=== PATIENT | male | born 1985 | race Caucasian/White ===

== ENCOUNTER 2018-01-04 19:17 | Emergency (ER) | payer MEDICAID ==
[~2018-01-04 19:17] MED LIST: LORTAB 5/500 501 TAB PO; PERCOCET 325 MG1 TA2 PO; PHENERGAN 25 TA25 MG PO; PHENERGAN25 MG RC; PRIL40 PO; RYBIX ODT50 MG PO; VITAMIN D50000 I2 PO
[2018-01-04 19:23] VITALS: TEMP 97.9
[2018-01-04 19:35] LABS: ARTERIAL BLD GAS O2 SATURATION 96.6 % (92-100); ARTERIAL BLD GAS TCO2 CT 29.1; ARTERIAL BLOOD GAS BASE EXCESS 2.3 (-2-2); ARTERIAL BLOOD GAS HCO3 27.8 meq/L (22-26); ARTERIAL BLOOD GAS PCO2 45.1 mmHg (35-45); ARTERIAL BLOOD GAS PO2 88.1 mmHg (80-100); ARTERIAL BLOOD GAS pH 7.41 (7.35-7.45)
[2018-01-04] MEDS ORDERED: CLARITIN 1010 MG/TAB PO (19:43)
[2018-01-04] MEDS ORDERED: TYLENOL 325MG325 MG PO (19:44)
[2018-01-04] MEDS ORDERED: AMBIEN 5MG TABLE5 MG PO (19:45)
[2018-01-04] MEDS ORDERED: NORCO 325 MG-51 TAB PO (19:45)
[2018-01-04] MEDS ORDERED: VITAMIN C500 MG PO (19:45)
[2018-01-04] MEDS ORDERED: MASON NATURAL2000 IU (19:46)
[2018-01-04] MEDS ORDERED: NUVIGIL150 MG PO (19:46)
[2018-01-04 19:56] LABS: BASO # 0.1 (0.0-0.2); BASO % 0.7 % (0.0-2.0); EOS # 0.1 (0.0-0.7); EOS % 1.6 % (0-4.0); GRAN # 4.6 (1.4-6.5); GRAN % 60.3 % (42.2-75.2); HEMOGLOBIN 18.9 g/dl (13.5-18.0); LYMPH # 2.3 (1.2-3.4); LYMPH % 29.5 % (20.0-51.0); MEAN CELL VOLUME 90 fl (80.0-100.0); MEAN CORPUSCULAR HEMOGLOBIN 30 pg (27.0-31.0); MEAN CORPUSCULAR HGB CONC 34 g/dl (33.0-37.0); MEAN PLATELET VOLUME 9.8 fl (7.4-10.4); MONO # 0.6 (0.1-0.6); MONO % 7.6 % (1.7-9.3); PLATELET COUNT 281 K/mm3 (130-400); RED BLOOD COUNT 6.24 M/mm3 (4.20-5.60); REDCELL DISTRIBUTION WIDTH-CV 13.2 % (11.5-14.5)
[2018-01-04 20:06] LABS: ALANINE AMINOTRANSFERASE 86 U/L (21-72); ALBUMIN 4.7 gm/dL (3.5-5.0); ALKALINE PHOSPHATASE 110 U/L (50-136); ANION GAP 11 mmol/L (7-16); AST,SGOT 39 U/L (15-37); BILIRUBIN,TOTAL 0.5 mg/dL (0.0-1.0); BLOOD UREA NITROGEN 18 mg/dL (9-20); C-REACTIVE PROTEIN < 0.5 mg/dL (0.0-0.9); CALCIUM 9.8 mg/dL (8.4-10.2); CARBON DIOXIDE 31 mmol/L (22-30); CHLORIDE 104 mmol/L (98-107); CREATININE, serum 0.74 mg/dL (0.66-1.25); GLUCOSE 110 mg/dL (74-106); LIPASE 77 U/L (23-300); POTASSIUM 4.4 mmol/L (3.4-5.0); SODIUM 146 mmol/L (137-145); TOTAL PROTEIN 7.5 gm/dL (6.4-8.2)
[2018-01-04 20:15] LABS: TROPONIN-I < 0.012 ng/mL (0.000-0.034)
[2018-01-04 20:33] LABS: COLLECTION METHOD CATHETER
[2018-01-04 20:43] LABS: MUCOUS Present /lpf; PH 5 (5-8); SQUAMOUS EPITHELIAL None Seen /hpf; URINE APPEARANCE Clear; URINE BACTERIA None Seen /hpf; URINE BILIRUBIN Negative (NEGATIVE); URINE BLOOD Negative (NEGATIVE); URINE COLOR Yellow; URINE GLUCOSE Negative (NEGATIVE); URINE KETONE Negative (NEGATIVE); URINE LEUKOCYTE ESTERASE Negative (NEGATIVE); URINE NITRATE Negative (NEGATIVE); URINE PROTEIN(semi-quant) Negative (NEGATIVE); URINE RBC 0-2 /hpf; URINE UROBILINOGEN Negative (NEGATIVE)
[2018-01-04 22:28] VITALS: BP 137/90; PULSE 89
== END 2018-01-04 22:42 | disposition home or self-care (01) ==
LOC: COL.ER 19:17
PROVIDERS: Emergency Medicine
DX: F44.9 Dissociative and conversion disorder, unspecified (principal); K21.9 Gastro-esophageal reflux disease without esophagitis

== ENCOUNTER 2018-05-14 14:23 | Inpatient (IN) | payer MEDICAID ==
[~2018-05-14] VITALS: Ht 167.6 cm; Wt 71.6 kg
[~2018-05-14 14:23] MED LIST changes: +AMBIEN 5MG TABLE5 MG PO; +CLARITIN 1010 MG/TAB PO; +NORCO 325 MG-51 TAB PO; +NUVIGIL150 MG PO; +TYLENOL 325MG325 MG PO; +VITAMIN C500 MG PO; +VITAMIN D 50,1.25 MG PO
[2018-05-14] MEDS ORDERED: NAPROSYN500 MG PO (14:43)
[2018-05-14] MEDS ORDERED: ZOFRAN 4MG T4 MG/TAB PO (14:44)
[2018-05-14] MEDS ORDERED: GERI-TUSSI100 MG/5 M PO (14:45)
[2018-05-14 15:31] LABS: COLLECTION METHOD CLEAN CATCH
[2018-05-14 15:35] LABS: BASO % 0.3 % (0.0-2.0); EOS # 0.1 (0.0-0.7); EOS % 2.3 % (0-4.0); GRAN # 3.8 (1.4-6.5); GRAN % 65.7 % (42.2-75.2); LYMPH # 1.2 (1.2-3.4); LYMPH % 20.8 % (20.0-51.0); MEAN CELL VOLUME 89 fl (80.0-100.0); MEAN CORPUSCULAR HGB CONC 34 g/dl (33.0-37.0); MEAN PLATELET VOLUME 9.6 fl (7.4-10.4); MONO # 0.6 (0.1-0.6); MONO % 10.6 % (1.7-9.3); PLATELET COUNT 284 K/mm3 (130-400); RED BLOOD COUNT 6.02 M/mm3 (4.20-5.60)
[2018-05-14 15:38] LABS: HEMATOCRIT 53.6 % (42.0-52.0); HEMOGLOBIN 18.2 g/dl (13.5-18.0); MEAN CORPUSCULAR HEMOGLOBIN 30 pg (27.0-31.0)
[2018-05-14 15:38] LABS: MUCOUS Present /lpf; PH 5 (5-8); SQUAMOUS EPITHELIAL 0-2 /hpf; URINE APPEARANCE Clear; URINE BACTERIA Rare /hpf; URINE BILIRUBIN Negative (NEGATIVE); URINE BLOOD Negative (NEGATIVE); URINE COLOR Yellow; URINE GLUCOSE Negative (NEGATIVE); URINE KETONE Trace (NEGATIVE); URINE LEUKOCYTE ESTERASE Negative (NEGATIVE); URINE NITRATE Negative (NEGATIVE); URINE PROTEIN(semi-quant) 1+ (NEGATIVE); URINE RBC 0-2 /hpf
[2018-05-14 15:43] LABS: ALBUMIN 4.6 gm/dL (3.5-5.0); C-REACTIVE PROTEIN 5.8 mg/dL (0.0-0.9); CALCIUM 9.9 mg/dL (8.4-10.2); CREATININE, serum 0.62 mg/dL (0.66-1.25); POTASSIUM 4.3 mmol/L (3.4-5.0)
[2018-05-14 18:14] VITALS: BP 159/104; PULSE 102; TEMP 97.5
[2018-05-14 19:17] VITALS: BP 141/98; PULSE 88; TEMP 97.9
[2018-05-14 23:00] VITALS: BP 111/64; PULSE 85; TEMP 98.3
[2018-05-15] VITALS (7 sets, daily range): BP systolic 84–116; BP diastolic 49–69; PULSE 65–88; TEMP 97.6–98.6
[2018-05-15 08:00] LABS: BASO % 0.4 % (0.0-2.0); EOS # 0.2 (0.0-0.7); EOS % 3.5 % (0-4.0); GRAN # 2.3 (1.4-6.5); GRAN % 50.3 % (42.2-75.2); HEMATOCRIT 42.5 % (42.0-52.0); LYMPH # 1.4 (1.2-3.4); LYMPH % 30.2 % (20.0-51.0); MEAN CORPUSCULAR HGB CONC 32 g/dl (33.0-37.0); MEAN PLATELET VOLUME 9.4 fl (7.4-10.4); MONO # 0.7 (0.1-0.6); MONO % 15.4 % (1.7-9.3); PLATELET COUNT 215 K/mm3 (130-400); RED BLOOD COUNT 4.53 M/mm3 (4.20-5.60); REDCELL DISTRIBUTION WIDTH-CV 13.1 % (11.5-14.5)
[2018-05-15 08:02] LABS: HEMOGLOBIN 13.5 g/dl (13.5-18.0); MEAN CELL VOLUME 94 fl (80.0-100.0); MEAN CORPUSCULAR HEMOGLOBIN 30 pg (27.0-31.0)
[2018-05-15 08:09] LABS: CALCIUM 8.3 mg/dL (8.4-10.2); CREATININE, serum 0.64 mg/dL (0.66-1.25); POTASSIUM 4.3 mmol/L (3.4-5.0)
[2018-05-16] VITALS (7 sets, daily range): BP systolic 96–143; BP diastolic 58–95; PULSE 64–102; TEMP 97.6–98.6
[2018-05-17 04:30] VITALS: BP 104/66; PULSE 56; TEMP 98.3
[2018-05-17 07:05] VITALS: BP 103/67; PULSE 75; TEMP 97.6
[2018-05-17 08:43] LABS: HEMATOCRIT 43.7 % (42.0-52.0); HEMOGLOBIN 14.4 g/dl (13.5-18.0); MEAN CELL VOLUME 90 fl (80.0-100.0); MEAN CORPUSCULAR HEMOGLOBIN 30 pg (27.0-31.0); MEAN CORPUSCULAR HGB CONC 33 g/dl (33.0-37.0); MEAN PLATELET VOLUME 9.7 fl (7.4-10.4); PLATELET COUNT 252 K/mm3 (130-400); RED BLOOD COUNT 4.84 M/mm3 (4.20-5.60); REDCELL DISTRIBUTION WIDTH-CV 12.8 % (11.5-14.5)
[2018-05-17 08:54] LABS: CALCIUM 9.3 mg/dL (8.4-10.2); CREATININE, serum 0.63 mg/dL (0.66-1.25)
[2018-05-17 11:08] VITALS: BP 118/78; PULSE 64; TEMP 98.2
[2018-05-17 15:46] VITALS: BP 114/76; PULSE 71; TEMP 98.9
[2018-05-17 19:41] VITALS: BP 137/94; PULSE 67; TEMP 98
[2018-05-18] VITALS (601 sets, daily range): BP systolic 102–127; BP diastolic 64–79; PULSE 50–70; TEMP 97.7–98.6; O2SAT 68–100
[2018-05-18 12:11] LABS: ARTERIAL BLOOD GAS PCO2 41.9 mmHg (35-45); ARTERIAL BLOOD GAS pH 7.46 (7.35-7.45)
[2018-05-18 12:12] LABS: ARTERIAL BLD GAS O2 SATURATION 98.8 % (92-100); ARTERIAL BLD GAS TCO2 CT 442; ARTERIAL BLOOD GAS HCO3 29.3 meq/L (22-26)
[2018-05-18 12:23] LABS: MEAN CELL VOLUME 91 fl (80.0-100.0); MEAN CORPUSCULAR HGB CONC 33 g/dl (33.0-37.0); MEAN PLATELET VOLUME 9.2 fl (7.4-10.4); PLATELET COUNT 195 K/mm3 (130-400); RED BLOOD COUNT 3.58 M/mm3 (4.20-5.60); REDCELL DISTRIBUTION WIDTH-CV 12.5 % (11.5-14.5)
[2018-05-18 12:27] LABS: HEMATOCRIT 32.4 % (42.0-52.0); HEMOGLOBIN 10.7 g/dl (13.5-18.0); MEAN CORPUSCULAR HEMOGLOBIN 30 pg (27.0-31.0)
[2018-05-18 12:32] LABS: INR 1.3 (0.8-3.0); PROTHROMBIN TIME 15.1 SECONDS (9.7-12.8)
[2018-05-18 12:36] LABS: BILIRUBIN,TOTAL 0.1 mg/dL (0.0-1.0); CREATININE, serum 0.36 mg/dL (0.66-1.25); MAGNESIUM 1.2 mg/dL (1.6-2.3); TOTAL PROTEIN 3.9 gm/dL (6.4-8.2)
[2018-05-18 12:39] LABS: CALCIUM 5.2 mg/dL (8.4-10.2); POTASSIUM 2.2 mmol/L (3.4-5.0)
[2018-05-18 12:50] LABS: PROLACTIN 11.9 ng/mL (3.7-17.9)
[2018-05-18 13:12] LABS: ALBUMIN 4.1 gm/dL (3.5-5.0); BILIRUBIN,TOTAL 0.5 mg/dL (0.0-1.0); CALCIUM 9.5 mg/dL (8.4-10.2); CREATININE, serum 0.63 mg/dL (0.66-1.25); POTASSIUM 3.6 mmol/L (3.4-5.0); TOTAL PROTEIN 6.9 gm/dL (6.4-8.2)
[2018-05-18 14:14] LABS: BASO % 0.5 % (0.0-2.0); EOS # 0.1 (0.0-0.7); EOS % 1.7 % (0-4.0); GRAN # 3.3 (1.4-6.5); GRAN % 56.8 % (42.2-75.2); HEMATOCRIT 46.6 % (42.0-52.0); LYMPH # 1.8 (1.2-3.4); LYMPH % 31.7 % (20.0-51.0); MEAN CELL VOLUME 89 fl (80.0-100.0); MEAN CORPUSCULAR HEMOGLOBIN 30 pg (27.0-31.0); MEAN CORPUSCULAR HGB CONC 34 g/dl (33.0-37.0); MEAN PLATELET VOLUME 9.6 fl (7.4-10.4); MONO # 0.5 (0.1-0.6); MONO % 8.1 % (1.7-9.3); PLATELET COUNT 290 K/mm3 (130-400); RED BLOOD COUNT 5.23 M/mm3 (4.20-5.60); REDCELL DISTRIBUTION WIDTH-CV 12.6 % (11.5-14.5)
[2018-05-18 14:17] LABS: HEMOGLOBIN 15.7 g/dl (13.5-18.0)
[2018-05-19] VITALS (582 sets, daily range): BP systolic 80–132; BP diastolic 53–82; PULSE 59–89; TEMP 97.6–98.5; O2SAT 63–100
[2018-05-19 06:09] LABS: BASO % 0.4 % (0.0-2.0); EOS # 0.1 (0.0-0.7); EOS % 1.5 % (0-4.0); GRAN # 4.1 (1.4-6.5); GRAN % 60.5 % (42.2-75.2); HEMATOCRIT 43.8 % (42.0-52.0); HEMOGLOBIN 14.3 g/dl (13.5-18.0); LYMPH # 1.9 (1.2-3.4); LYMPH % 28.1 % (20.0-51.0); MEAN CELL VOLUME 91 fl (80.0-100.0); MEAN CORPUSCULAR HEMOGLOBIN 30 pg (27.0-31.0); MEAN CORPUSCULAR HGB CONC 33 g/dl (33.0-37.0); MEAN PLATELET VOLUME 9.2 fl (7.4-10.4); MONO # 0.6 (0.1-0.6); MONO % 8.8 % (1.7-9.3); PLATELET COUNT 278 K/mm3 (130-400); REDCELL DISTRIBUTION WIDTH-CV 12.9 % (11.5-14.5)
[2018-05-19 06:19] LABS: CALCIUM 8.7 mg/dL (8.4-10.2); CREATININE, serum 0.67 mg/dL (0.66-1.25); POTASSIUM 3.9 mmol/L (3.4-5.0)
[2018-05-20] VITALS (7 sets, daily range): BP systolic 102–124; BP diastolic 44–93; PULSE 60–81; TEMP 98–98.6
[2018-05-20 05:28] LABS: ARTERIAL BLD GAS O2 SATURATION 92.2 % (92-100); ARTERIAL BLD GAS TCO2 CT 30.4; ARTERIAL BLOOD GAS BASE EXCESS 3.5 (-2-2); ARTERIAL BLOOD GAS PCO2 46.6 mmHg (35-45); ARTERIAL BLOOD GAS PO2 58.8 mmHg (80-100); ARTERIAL BLOOD GAS pH 7.41 (7.35-7.45)
[2018-05-21 00:48] VITALS: BP 102/58; PULSE 64; TEMP 98.2
[2018-05-21 03:59] VITALS: BP 104/73; PULSE 57; TEMP 97.8
[2018-05-21 07:35] VITALS: BP 104/51; BP 109/76; PULSE 74; PULSE 75; TEMP 97.5; TEMP 98.4
[2018-05-21] MEDS ORDERED: REGLAN 5MG T5 MG/TAB PO (08:19)
[2018-05-21] MEDS ORDERED: PREVALITE4 GM/5.5 G PO (08:19)
[2018-05-21] MEDS ORDERED: PROTONIX 40MG T40 MG PO (08:19)
[2018-05-21 11:45] VITALS: BP 109/76; PULSE 74; TEMP 97.5
== END 2018-05-21 13:07 | DRG 391 ==
LOC: COL.ER 14:23 → MEDICAL 16:58 → ICU 05-18 11:58 → MEDICAL 05-19 11:20
PROVIDERS: Family Medicine; Hospitalist; Internal Medicine Gastroenterology; Internal Medicine Pulmonary Disease; Surgery
PROC: 0DB68ZX Excision of Stomach, Via Natural or Artificial Opening Endoscopic, Diagnostic (ICD-10-PCS; 2018-05-18)
PROC: 0DBN8ZX Excision of Sigmoid Colon, Via Natural or Artificial Opening Endoscopic, Diagnostic (ICD-10-PCS; principal; 2018-05-18 10:00)
PROC: 0DB98ZX Excision of Duodenum, Via Natural or Artificial Opening Endoscopic, Diagnostic (ICD-10-PCS; 2018-05-18 10:00)
DX: R11.2 Nausea with vomiting, unspecified (principal); R09.2 Respiratory arrest; G71.0 Muscular dystrophy; R19.7 Diarrhea, unspecified
CPT/HCPCS: 99223; 99232-AI; A9284; G0378; J1170; J1650; J2270; J2405; J2704; J2765; J3475; J3480; J7030; J7120; Q9967

== ENCOUNTER 2018-06-26 16:48 | Emergency (ER) | payer MEDICAID ==
[~2018-06-26] VITALS: Ht 167.6 cm; Wt 73.2 kg
[~2018-06-26 16:48] MED LIST changes: +GERI-TUSSI100 MG/5 M PO; +NAPROSYN500 MG PO; +PREVALITE4 GM/5.5 G PO; +PROTONIX 40MG T40 MG PO; +REGLAN 5MG T5 MG/TAB PO; +ZOFRAN 4MG T4 MG/TAB PO
[2018-06-26 16:53] VITALS: TEMP 99.2
[2018-06-26 17:42] LABS: COLLECTION METHOD CLEAN CATCH
[2018-06-26 17:42] LABS: BASO % 0.4 % (0.0-2.0); EOS # 0.1 (0.0-0.7); EOS % 1.4 % (0-4.0); GRAN # 3.9 (1.4-6.5); GRAN % 48.7 % (42.2-75.2); HEMATOCRIT 49.5 % (42.0-52.0); HEMOGLOBIN 16.4 g/dl (13.5-18.0); LYMPH # 3.3 (1.2-3.4); LYMPH % 41.8 % (20.0-51.0); MEAN CELL VOLUME 92 fl (80.0-100.0); MEAN CORPUSCULAR HEMOGLOBIN 31 pg (27.0-31.0); MEAN CORPUSCULAR HGB CONC 33 g/dl (33.0-37.0); MEAN PLATELET VOLUME 10.2 fl (7.4-10.4); MONO # 0.6 (0.1-0.6); MONO % 7.2 % (1.7-9.3); PLATELET COUNT 289 K/mm3 (130-400); RED BLOOD COUNT 5.37 M/mm3 (4.20-5.60); REDCELL DISTRIBUTION WIDTH-CV 13.3 % (11.5-14.5)
[2018-06-26 17:49] LABS: MUCOUS Present /lpf; PH 5 (5-8); SQUAMOUS EPITHELIAL None Seen /hpf; URINE APPEARANCE Clear; URINE BACTERIA None Seen /hpf; URINE BILIRUBIN Negative (NEGATIVE); URINE BLOOD Negative (NEGATIVE); URINE COLOR Yellow; URINE GLUCOSE Negative (NEGATIVE); URINE KETONE Negative (NEGATIVE); URINE LEUKOCYTE ESTERASE Negative (NEGATIVE); URINE NITRATE Negative (NEGATIVE); URINE PROTEIN(semi-quant) Negative (NEGATIVE); URINE RBC 0-2 /hpf; URINE UROBILINOGEN Negative (NEGATIVE)
[2018-06-26 18:24] LABS: ALANINE AMINOTRANSFERASE 89 U/L (21-72); ALBUMIN 4.1 gm/dL (3.5-5.0); ALKALINE PHOSPHATASE 65 U/L (50-136); ANION GAP 13 mmol/L (7-16); AST,SGOT 47 U/L (15-37); BILIRUBIN,TOTAL 0.3 mg/dL (0.0-1.0); BLOOD UREA NITROGEN 17 mg/dL (9-20); C-REACTIVE PROTEIN 0.6 mg/dL (0.0-0.9); CALCIUM 9.1 mg/dL (8.4-10.2); CARBON DIOXIDE 28 mmol/L (22-30); CHLORIDE 103 mmol/L (98-107); CREATININE, serum 0.67 mg/dL (0.66-1.25); GLUCOSE 89 mg/dL (74-106); LIPASE 72 U/L (23-300); POTASSIUM 3.8 mmol/L (3.4-5.0); SODIUM 144 mmol/L (137-145)
[2018-06-26 18:34] LABS: TROPONIN-I < 0.012 ng/mL (0.000-0.034)
[2018-06-26 21:08] VITALS: BP 117/87; PULSE 92
== END 2018-06-26 21:30 | disposition home or self-care (01) ==
LOC: COL.ER 16:48 → ICU 18:34 → COL.ER 18:34
PROVIDERS: Emergency Medicine
DX: R07.89 Other chest pain (principal)
CPT/HCPCS: C9113; J2405; J2765; J3010; J7030; Q9967

== ENCOUNTER → 2018-09-05 | Outpatient (CLI) | payer MEDICAID ==
[2018-09-05 13:52] LABS: HEMATOCRIT 51.8 % (42.0-52.0); HEMOGLOBIN 16.8 g/dl (13.5-18.0); MEAN CELL VOLUME 94 fl (80.0-100.0); MEAN CORPUSCULAR HEMOGLOBIN 31 pg (27.0-31.0); MEAN CORPUSCULAR HGB CONC 32 g/dl (33.0-37.0); MEAN PLATELET VOLUME 10.3 fl (7.4-10.4); PLATELET COUNT 276 K/mm3 (130-400); RED BLOOD COUNT 5.51 M/mm3 (4.20-5.60)
[2018-09-05 14:04] LABS: BAND 3 % (0-10); LYMPHOCYTE 35 % (20.0-51.0); NEUTROPHILS 55 % (42.0-75.2); PLATELET ESTIMATE NORMAL (NORMAL); STOMATOCYTE 2+
[2018-09-05 14:16] LABS: CHOLESTEROL 269 mg/dL (120-200); CHOLESTEROL RISK RATIO 8.1
[2018-09-05 14:23] LABS: TRIGLYCERIDE 594 mg/dL
== END ==
LOC: ZCOL.LAB 12:47
PROVIDERS: Family Medicine
DX: G71.11 Myotonic muscular dystrophy (principal)

== ENCOUNTER 2018-10-10 10:02 | Emergency (ER) | payer MEDICAID ==
[~2018-10-10] VITALS: Ht 167.6 cm; Wt 76.4 kg
[2018-10-10 10:06] VITALS: BP 144/92; TEMP 98.1
[2018-10-10] MEDS ORDERED: VITAMIN D 50,1.25 MG PO (10:18)
[2018-10-10] MEDS ORDERED: REGLAN 5MG T5 MG/TAB PO (10:19)
[2018-10-10] MEDS ORDERED: MIRALAX PA17 GM/Dose PO (10:23)
[2018-10-10 10:57] LABS: BASO % 0.3 % (0.0-2.0); EOS % 0.3 % (0-4.0); GRAN # 7.4 (1.4-6.5); GRAN % 77.5 % (42.2-75.2); HEMATOCRIT 53.5 % (42.0-52.0); HEMOGLOBIN 17.4 g/dl (13.5-18.0); LYMPH # 1.4 (1.2-3.4); LYMPH % 14.8 % (20.0-51.0); MEAN CELL VOLUME 92 fl (80.0-100.0); MEAN CORPUSCULAR HEMOGLOBIN 30 pg (27.0-31.0); MEAN CORPUSCULAR HGB CONC 33 g/dl (33.0-37.0); MEAN PLATELET VOLUME 9.6 fl (7.4-10.4); MONO # 0.7 (0.1-0.6); MONO % 6.9 % (1.7-9.3); PLATELET COUNT 273 K/mm3 (130-400); RED BLOOD COUNT 5.81 M/mm3 (4.20-5.60); REDCELL DISTRIBUTION WIDTH-CV 13.2 % (11.5-14.5)
[2018-10-10 11:16] LABS: ALANINE AMINOTRANSFERASE 107 U/L (21-72); ALBUMIN 4.7 gm/dL (3.5-5.0); ALKALINE PHOSPHATASE 85 U/L (50-136); ANION GAP 8 mmol/L (7-16); AST,SGOT 65 U/L (15-37); BILIRUBIN,TOTAL 0.8 mg/dL (0.0-1.0); BLOOD UREA NITROGEN 16 mg/dL (9-20); C-REACTIVE PROTEIN 1.4 mg/dL (0.0-0.9); CALCIUM 9.8 mg/dL (8.4-10.2); CARBON DIOXIDE 31 mmol/L (22-30); CHLORIDE 107 mmol/L (98-107); CREATININE, serum 0.64 mg/dL (0.66-1.25); GLUCOSE 101 mg/dL (74-106); LIPASE 41 U/L (23-300); SODIUM 146 mmol/L (137-145); TOTAL PROTEIN 7.9 gm/dL (6.4-8.2)
[2018-10-10 11:25] LABS: TROPONIN-I < 0.012 ng/mL (0.000-0.034)
[2018-10-10] MEDS ORDERED: PHENERGAN 25 TA25 MG PO (15:26)
[2018-10-10] MEDS ORDERED: ZOFRAN ODT4 MG PO (15:26)
[2018-10-10 16:10] VITALS: PULSE 72
== END 2018-10-10 16:34 | disposition home or self-care (01) ==
LOC: COL.ER 10:02
PROVIDERS: Emergency Medicine
DX: R19.7 Diarrhea, unspecified (principal); R11.10 Vomiting, unspecified; K21.9 Gastro-esophageal reflux disease without esophagitis; G71.00 Muscular dystrophy, unspecified; Z90.49 Acquired absence of other specified parts of digestive tract
CPT/HCPCS: J2405; J2550; J7030; Q9967

== ENCOUNTER → 2018-12-10 | Outpatient (CLI) | payer MEDICAID ==
[~2018-12-10] MED LIST changes: +MIRALAX PA17 GM/Dose PO; +ZOFRAN ODT4 MG PO
== END ==
LOC: ZCOL.LAB 13:50
DX: G71.11 Myotonic muscular dystrophy (principal); K21.9 Gastro-esophageal reflux disease without esophagitis

== ENCOUNTER 2019-04-18 11:10 | Inpatient (IN) | payer MEDICAID ==
[~2019-04-18] VITALS: Ht 167.6 cm; Wt 80.7 kg
[2019-04-18] VITALS (376 sets, daily range): BP systolic 100–101; BP diastolic 69–73; PULSE 100–118; TEMP 99.5–99.6; O2SAT 80–100
[~2019-04-18 11:10] MED LIST changes: +GLYCERIN S1 SUPP.REC RC; +IMODIUM 2MG CAPS2 MG PO; +LIPITOR20 MG PO; +POLYMYXIN B/TRIMETH OP; +POLYMYXIN B/TRIMETH OS; +PREDFORTE5ML OP
[2019-04-18 11:49] LABS: ARTERIAL BLD GAS O2 SATURATION 94.3 % (92-100); ARTERIAL BLD GAS TCO2 CT 34.6; ARTERIAL BLOOD GAS BASE EXCESS 3.5 (-2-2); ARTERIAL BLOOD GAS HCO3 32.5 meq/L (22-26); ARTERIAL BLOOD GAS PO2 77.3 mmHg (80-100); ARTERIAL BLOOD GAS pH 7.31 (7.35-7.45)
[2019-04-18 11:50] LABS: ARTERIAL BLOOD GAS PCO2 65.8 mmHg (35-45)
[2019-04-18 12:41] LABS: ALBUMIN 4.9 gm/dL (3.5-5.0); CREATININE, serum 0.68 (0.66-1.25); POTASSIUM 3.5 mmol/L (3.4-5.0); TOTAL PROTEIN 9.2 gm/dL (6.4-8.2)
[2019-04-18 13:48] LABS: HEMOGLOBIN 17.7 g/dl (13.5-18.0); MEAN CELL VOLUME 96 fl (80.0-100.0); MEAN CORPUSCULAR HEMOGLOBIN 30 pg (27.0-31.0); MEAN CORPUSCULAR HGB CONC 31 g/dl (33.0-37.0); MEAN PLATELET VOLUME 9.6 fl (7.4-10.4); PLATELET COUNT 290 K/mm3 (130-400); REDCELL DISTRIBUTION WIDTH-CV 13.6 % (11.5-14.5)
[2019-04-18 13:53] LABS: HEMATOCRIT 56.8 % (42.0-52.0)
--- NOTE | 2019-04-18 14:05 | NUR ---
DANELLE responded to ED consult and met with the patient's cousin, Tahmina (DPOA-HC). Tahmina reports that the patient is not doing very well and she had questions about finances for arrangements, if the patient's condition were to get worse. She states that the patient receives social security and that he has a payee. SW advised the patient's cousin to consult his payee. The patient's cousin had no other questions or concerns at this time. The patient was admitted into ICU. DANELLE to continue to follow.
[2019-04-18 14:40] LABS: BAND 13 % (0-10); LYMPHOCYTE 37 % (20.0-51.0); NEUTROPHILS 38 % (42.0-75.2); PLATELET ESTIMATE NORMAL (NORMAL)
--- NOTE | 2019-04-18 15:45 | NUR ---
Pt arrived via cart, transfered via slideboard onto ICU bed - pt tolerated transfer well. Pt tachypnic, tachycardic and normotensive at this time, non-rebreather mask in place and RT Patience present during transport. BiPap machine in room on standby. Pt AAOx4, conversation appropriate, no confusion, PERRLA, Family member Tahmina stating she wants pt to be intubated d/t respiratory distress and high doses of O2 requirements. MD Tony, WILLOW Rios, DANELLE Carrillo Patience,RT Theresa Desouza RN all present for conversation with pt's family member and pt. Pt expressing his wishes stating "I do not want the breathing tube". MD Tony stated to pt we will respect his wishes - family member, pt, and all parties present in agreement on DNI, otherwise code status is 'Full'
--- NOTE | 2019-04-18 16:11 | NUR ---
Dr Jimenez talked with pt upon arrival to ICU about his wishes regarding intubation. Pt is aware that he has pneumonia and that BIPAP can be tried to assist him with breathing but he was asked several times "if he would want a tube down his throat to help him breath with a machine" and he very clearly and deliberately shook his head "no". He was again asked if he would want to be placed on a breathing machine with a tube down his throat even if it meant that he would without the machine and again he deliberately shook his head no. His durable power of development planner was called into the room and reported to Dr Jimenez that pt had also told her that he would not want a tube down his throat or to be on a ventilator. Dr Jimenez then advised her that he would not go against pt's wishes if his condition were to worsen. We will continue antibiotics and supportyive care but will not proceed with intubation out of respect for pt's wishes.
--- NOTE | 2019-04-18 16:14 | NUR ---
DANELLE met with the patient and JEAN-PAUL Martel to discuss a discharge plan. The pt lives at [facility] in [facility]. The pt has a cane and receives partial assistance with bathing. The pt receives his medications from [facility] in [place]. Tahmina Ovalles Dr. Jimenez spoke with the pt upon arrival to ICU3 about his wishes. Dr. Jimenez asked "if he would want a tube down his throat" and the pt shook his head side to side with a no. Dr. Jimenez asked the pt "if he would like to be on a venilator" and the pt shook his head side to side no. JEAN-PAUL was informed of patient's wishes. Dr. Jimenez advised MARIE-VASHTI thathe would not go against the pt's wishes. DANELLE will continue to follow and assist with any discharge needs.
--- NOTE | 2019-04-18 16:15 | NUR ---
After discussing with the patient and the DPOA the results of the most recent CT scan, Dr. Jimenez asked the patient again if he would want to be intubated and placed on a ventilator if he does not improve on the Bipap. The pt said that he would not want that again. MARIE Martel stated that she would want to do everything in his best intrest even if that meant intubation. Dr. Jimenez stated that he would treat Cristopher according to Juandragan's wishes becuase he is alert & orientated and able to make that descision at this time.
[2019-04-18 18:44] LABS: ARTERIAL BLD GAS O2 SATURATION 90.6 % (92-100); ARTERIAL BLD GAS TCO2 CT 32.8; ARTERIAL BLOOD GAS BASE EXCESS 4.5 (-2-2); ARTERIAL BLOOD GAS HCO3 31.2 meq/L (22-26); ARTERIAL BLOOD GAS PCO2 53.7 mmHg (35-45); ARTERIAL BLOOD GAS PO2 59.1 mmHg (80-100); ARTERIAL BLOOD GAS pH 7.38 (7.35-7.45)
[2019-04-18 20:09] LABS: COLLECTION METHOD CLEAN CATCH
[2019-04-18 20:50] LABS: AMORPHOUS CRYSTAL Present /uL; MUCOUS Present /lpf; PH 5 (5-8); SQUAMOUS EPITHELIAL 0-2 /hpf; URINE APPEARANCE Cloudy; URINE BACTERIA None Seen /hpf; URINE BILIRUBIN Negative (NEGATIVE); URINE BLOOD Negative (NEGATIVE); URINE COLOR Yellow; URINE GLUCOSE Negative (NEGATIVE); URINE KETONE Negative (NEGATIVE); URINE LEUKOCYTE ESTERASE Negative (NEGATIVE); URINE NITRATE Negative (NEGATIVE); URINE PROTEIN(semi-quant) Negative (NEGATIVE); URINE UROBILINOGEN Negative (NEGATIVE)
--- NOTE | 2019-04-18 21:08 | NUR ---
DONE ORAL CARE ON PT WITH TOOTHBRUSH. USED MOUTH MOISTURIZER
[2019-04-19] VITALS (1144 sets, daily range): BP systolic 98–108; BP diastolic 46–81; PULSE 82–154; TEMP 9.8; O2SAT 81–100
[2019-04-19 05:36] LABS: MEAN CELL VOLUME 95 fl (80.0-100.0); MEAN CORPUSCULAR HEMOGLOBIN 30 pg (27.0-31.0); MEAN CORPUSCULAR HGB CONC 31 g/dl (33.0-37.0); MEAN PLATELET VOLUME 10.2 fl (7.4-10.4); PLATELET COUNT 220 K/mm3 (130-400); RED BLOOD COUNT 5.14 M/mm3 (4.20-5.60)
[2019-04-19 05:37] LABS: HEMOGLOBIN 15.4 g/dl (13.5-18.0)
[2019-04-19 05:44] LABS: ALBUMIN 3.8 gm/dL (3.5-5.0); BILIRUBIN,TOTAL 0.9 mg/dL (0.0-1.0); CALCIUM 8.8 mg/dL (8.4-10.2); CREATININE, serum 0.67 (0.66-1.25); MAGNESIUM 2.5 mg/dL (1.6-2.3); PHOSPHOROUS 2.9 mg/dL (2.5-4.5); POTASSIUM 3.7 mmol/L (3.4-5.0); TOTAL PROTEIN 7.1 gm/dL (6.4-8.2)
[2019-04-19 06:00] LABS: PLATELET ESTIMATE NORMAL (NORMAL)
[2019-04-19 06:34] LABS: BAND 61 % (0-10); LYMPHOCYTE 4 % (20.0-51.0); METAMYELOCYTE 8 % (0-0); NEUTROPHILS 21 % (42.0-75.2)
--- NOTE | 2019-04-19 08:00 | NUR ---
Shift assessment complete at this time. Plan of care reviewed at bedside with patient. Additional time taken to address any other educational needs or concerns. Vitals stable at this time. Denies pain or any other discomfort. Bed in low position, call light within reach, will continue to monitor.
[2019-04-19 10:08] LABS: PATHOLOGY DIFF REVIEW OK
--- NOTE | 2019-04-19 11:00 | NUR ---
At 1051, Pt noted to be in A-Fib RVR with high rate in 160s to 190s. Dr. German in unit at time and ordered Stat dose of [address] Mari consulted and 300 mg amiodarone bolus was administered. Pt converted to sinus rhythm on own at approximately 1245. Dr. Mari notified and orders received to continue Amiodarone gtt for 24 hours at 1 mg/min.
--- NOTE | 2019-04-19 11:16 | NUR ---
Intial amiodarone bolus adminstration started. Total infusion time is 30 minutes of 150 mg per order.
--- NOTE | 2019-04-19 12:00 | NUR ---
Second amiodarone bolus administered over 1 hour per order.
--- NOTE | 2019-04-19 12:56 | NUR ---
Amiodarone gtt started at this time. 1 mg/min dosage to run for a total of 24 hours per order.
[2019-04-19 13:13] LABS: ARTERIAL BLD GAS O2 SATURATION 93.8 % (92-100); ARTERIAL BLOOD GAS BASE EXCESS 8.2 (-2-2); ARTERIAL BLOOD GAS HCO3 35.2 meq/L (22-26); ARTERIAL BLOOD GAS PCO2 58.2 mmHg (35-45); ARTERIAL BLOOD GAS PO2 69.3 mmHg (80-100)
--- NOTE | 2019-04-19 16:00 | NUR ---
Shift reassessment complete at this time. Pt has had no rhythm changes from sinus since the end of the second amiodarone bolus. Vitals stable at this time. Denies pain or any other discomfort. Bed in low and locked position, call light within reach, will continue to monitor.
--- NOTE | 2019-04-19 19:21 | NUR ---
Bedside report given to WILLOW Perkins.
--- NOTE | 2019-04-19 19:40 | NUR ---
Patient assessment completed and charted at this time, please see documentation for details. Patient assisted back to bed from commode, stand by assist no issues to report. Patient remains on 15L via oxymask at this time. No family present, denies any needs, will continue to monitor and assess.
[2019-04-20] VITALS (930 sets, daily range): BP systolic 72–124; BP diastolic 40–84; PULSE 57–86; TEMP 98–99.4; O2SAT 83–100
[2019-04-20 05:35] LABS: HEMATOCRIT 39.2 % (42.0-52.0); MEAN CELL VOLUME 97 fl (80.0-100.0); MEAN CORPUSCULAR HEMOGLOBIN 30 pg (27.0-31.0); MEAN CORPUSCULAR HGB CONC 31 g/dl (33.0-37.0); MEAN PLATELET VOLUME 10.4 fl (7.4-10.4); PLATELET COUNT 254 K/mm3 (130-400); RED BLOOD COUNT 4.06 M/mm3 (4.20-5.60); REDCELL DISTRIBUTION WIDTH-CV 13.9 % (11.5-14.5)
[2019-04-20 05:37] LABS: HEMOGLOBIN 12.2 g/dl (13.5-18.0)
[2019-04-20 05:44] LABS: CALCIUM 7.6 mg/dL (8.4-10.2); CREATININE, serum 0.49 (0.66-1.25); MAGNESIUM 2.3 mg/dL (1.6-2.3); PHOSPHOROUS 1.5 mg/dL (2.5-4.5); POTASSIUM 3.4 mmol/L (3.4-5.0)
--- NOTE | 2019-04-20 07:00 | NUR ---
REPORT RECEIVED FROM AZEB DAUGHERTY. CARE ASSUMED.
--- NOTE | 2019-04-20 07:55 | NUR ---
PT'S MOTHER CALLED FOR AN UPDATE. PT'S MOTHER STATES SHE WILL BE ARRIVING AROUND 1500 TO SEE SON.
--- NOTE | 2019-04-20 09:28 | NUR ---
BIPAP RESUMED D/T PT'S O2 SAT DECREASING TO 88% ON 10L OM.
[2019-04-20 09:46] LABS: BAND 46 % (0-10); LYMPHOCYTE 9 % (20.0-51.0); METAMYELOCYTE 3 % (0-0); NEUTROPHILS 38 % (42.0-75.2)
[2019-04-20 09:47] LABS: HYPOCHROMIA 1+; PLATELET ESTIMATE NORMAL (NORMAL)
[2019-04-20 10:48] LABS: ARTERIAL BLD GAS O2 SATURATION 93.4 % (92-100); ARTERIAL BLD GAS TCO2 CT 35.2; ARTERIAL BLOOD GAS HCO3 33.4 meq/L (22-26); ARTERIAL BLOOD GAS PCO2 60.4 mmHg (35-45); ARTERIAL BLOOD GAS PO2 70.5 mmHg (80-100); ARTERIAL BLOOD GAS pH 7.36 (7.35-7.45)
--- NOTE | 2019-04-20 11:31 | NUR ---
PT INCREASINGLY LETHARGIC. PT ON BIPAP AT 55%. LEVOPHED PROGRESSIVELY NEEDING TO BE INCREASED FOR HYPOTENSION. DR RIOS AT BEDSIDE.
--- NOTE | 2019-04-20 12:00 | NUR ---
PT PALE IN APPEARANCE. PT NOTED TO HAVE MODERATE AMT OF SCLERAL EDEMA NOT NOTED PRIOR TO LEFT EYE.
--- NOTE | 2019-04-20 12:31 | NUR ---
CALLED PT'S DPOA, HUMA, TO GIVE HER AN UPDATE ON PATIENT'S STATUS REGARDING HIS BP, LEVOPHED, BLOOD WORK, AND CHEST XRAY. DPOA PICKING UP PATIENT'S MOTHER AT AIRPORT AND WILL BE COMING IN TO SEE PATIENT SOON SHE PICKS UP HIS MOTHER.
--- NOTE | 2019-04-20 13:22 | NUR ---
PT HAVING DIFFICULTY VOIDING BUT IS REFUSING A CATHETER. I EXPLAINED TO PATIENT THAT D/T HIS HYPOTENSION AND BEING ON LEVOPHED IT IS UNSAFE TO LET HIM GET UP TO THE BEDSIDE COMMODE. PT ATTEMPTED TWICE TO VOID IN URINAL WITHOUT SUCCESS. DID ALLOW PT TO SIT ON EDGE TO ATTEMPT TO VOID IN URINAL. PT UNABLE TO VOID. PT DID ASK IF WE COULD PUT A DEPENDS ON PATIENT TO GO IN SINCE WE WOULD NOT ALLOW HIM UP TO THE BEDSIDE COMMODE.
--- NOTE | 2019-04-20 15:24 | NUR ---
PT'S LEVOPHED REMAINS ON STANDBY. PT ABLE TO PIVOT TO BEDSIDE COMMODE AND THEN PIVOT TO RECLINER CHAIR.
[2019-04-20 16:48] LABS: CALCIUM 9.1 mg/dL (8.4-10.2); CREATININE, serum 0.46 (0.66-1.25); PHOSPHOROUS 1.8 mg/dL (2.5-4.5)
--- NOTE | 2019-04-20 16:50 | NUR ---
PT'S COUSIN AND MOM HERE AT BEDSIDE.
[2019-04-21] VITALS (82 sets, daily range): BP systolic 92–121; BP diastolic 63–85; PULSE 67–163; TEMP 97.8–98; O2SAT 86–97
[2019-04-21 05:14] LABS: HEMATOCRIT 42.3 % (42.0-52.0); HEMOGLOBIN 13.1 g/dl (13.5-18.0); MEAN CELL VOLUME 97 fl (80.0-100.0); MEAN CORPUSCULAR HEMOGLOBIN 30 pg (27.0-31.0); MEAN CORPUSCULAR HGB CONC 31 g/dl (33.0-37.0); MEAN PLATELET VOLUME 10.4 fl (7.4-10.4); PLATELET COUNT 242 K/mm3 (130-400); RED BLOOD COUNT 4.37 M/mm3 (4.20-5.60); REDCELL DISTRIBUTION WIDTH-CV 13.5 % (11.5-14.5)
[2019-04-21 05:32] LABS: CALCIUM 8.9 mg/dL (8.4-10.2); CREATININE, serum 0.53 (0.66-1.25); MAGNESIUM 2.4 mg/dL (1.6-2.3); PHOSPHOROUS 1.7 mg/dL (2.5-4.5); POTASSIUM 3.9 mmol/L (3.4-5.0)
[2019-04-21 05:40] LABS: BAND 28 % (0-10); HYPOCHROMIA 1+; LYMPHOCYTE 10 % (20.0-51.0); METAMYELOCYTE 1 % (0-0); NEUTROPHILS 58 % (42.0-75.2); PLATELET ESTIMATE NORMAL (NORMAL)
[2019-04-21 05:45] LABS: ARTERIAL BLD GAS O2 SATURATION 91.9 % (92-100); ARTERIAL BLD GAS TCO2 CT 31.7; ARTERIAL BLOOD GAS BASE EXCESS 3.7 (-2-2); ARTERIAL BLOOD GAS HCO3 30.1 meq/L (22-26); ARTERIAL BLOOD GAS PCO2 52.8 mmHg (35-45); ARTERIAL BLOOD GAS PO2 65.2 mmHg (80-100); ARTERIAL BLOOD GAS pH 7.37 (7.35-7.45)
--- NOTE | 2019-04-21 07:15 | NUR ---
0700:SpO2 82% on 15L/min Oxymask - Pt aggreeable to BiPap (50%FiO2), SpO2 increased to 87%, FiO2 increased to 70% SpO2 increased to 92%. 0715:MD Jacey on unit in room. HR 130-160s AFib/Flutter. Amiodarone bolus initiated by WILLOW Perkins complete. MD Jacey gave no new orders other than to watch for 2 hours further. 0729: MD Emeli called and notified of pt HR, recent BP, BiPap and oxygen demand. Ordered to administer PO amiodarone early right now. 0745: Pt refusing going back on BiPap after PO amiodarone dose administration, Oxymask at 15L/min applied - RT Amira called and notified.
--- NOTE | 2019-04-21 08:45 | NUR ---
reported by primary care nurse patient is having tachyarrhythmias. Reviewed this a.m. chest x-ray with tip location noted in right atrium. Contacted assistant wrestling coach and he order for PICC to be retracted 1-2 cm. With sterile technique right upper arm PICC dressing change done with insertion site cleansed with ChloraPrep 1, allowed chlorhexidine to dry, PICC pulled from 5 cm marking to 7 cm marking on catheter, skin prep, StatLock, chlorhexidine impregnated disc applied, and Tegaderm applied. No signs or symptoms of IV complications noted. No concerns voiced. Arm wrapped with John to protect catheter. Primary care nurse informed.
--- NOTE | 2019-04-21 10:01 | NUR ---
Interdisciplinary rounds with MD Estefanía complete. Pt remains AFlutter HR in 150's
--- NOTE | 2019-04-21 10:04 | NUR ---
SW rounded with the team. A pallative care consult was ordered. SW will continue to follow.
--- NOTE | 2019-04-21 10:17 | NUR ---
Rakel (cousin) called and updated on pt status. She states mother and step-father, and her will be up to visit about [phone]
--- NOTE | 2019-04-21 10:30 | NUR ---
MD Jacey called to notify: pt recieved scheduled 400mg PO amiodarone this morning, pt did convert to sinus rhythym at 0846 for 4min before reverting back to Atrial Flutter with rate from 130-171. Pt blood pressures are running from systolic 97-107 and pt stating "I feel my heart racing". MD Jacey stating he does not want additional amiodarone, does not want to start cardizem, or digoxin. MD Jacey is aware that pt has open port on central line where vasopressors can be administered for hypotension induced by IV antiarrthymics. MD Jacey wants to monitor with no intervention for 24-30hours d/t increased risk which could require intubation. 1135: MD Emeli called to notify of MD Jacey's plan.
--- NOTE | 2019-04-21 13:36 | NUR ---
The patient's nurse informed SW that the pt was interested in going to the [facility]. The pt's nurse faxed over a referral. SW contacted [facility] and they did receive the referral. SW to continue to follow.
--- NOTE | 2019-04-21 14:00 | NUR ---
Pt has decided on [facility] with change of code status from DNR w/ interventions to DNR with no interventions, MD Estefanía notified. Family meeting kacie More RN, pt's DPOA cousin, mother and step father. All in agreement. [facility] called and all appropriate information provided via telephone and fax.
--- NOTE | 2019-04-21 14:40 | NUR ---
Initial visit (this stay); Ironing Worker offered spiritual care to Esa and his family, praying with them and listening. Ironing Worker is available as is Ironing Worker Care available around the clock.
--- NOTE | 2019-04-21 14:40 | NUR ---
Elmira from [facility] informed SW that they can accept the patient tomorrow, 04/22. SW will continue to follow.
--- NOTE | 2019-04-21 14:43 | NUR ---
Family was expected for visit this afternoon. Pt told his nurse that he was wanting to go to [facility] and not return to [facility]. Pt also requested to be changed to do not resuscitate status and was able to verbalize what that would mean. He understands that he would not return to the hospital, would not be given antibiotics, and that his would likely occur at the hospice house. he reports that he is aware of these things and is ready to go when his time has come. Support provided to pt. JEAN-PAUL was present during this meeting and was supportive. Mother, Jennifer, stated she was not ready, but would respect his wishes. We are planning on discharge to hospice [place] tomorrow.
--- NOTE | 2019-04-21 15:49 | NUR ---
PT ON COMFORT CARE REQUESTING BREATHING TREATMENT AT THIS TIME. VITALS SIGNS NOT TAKEN PER PT REQUEST.
--- NOTE | 2019-04-22 07:30 | NUR ---
BEDSIDE REPORT RECEIVED FROM WILLOW BOWIE
--- NOTE | 2019-04-22 09:02 | NUR ---
Comfort quilt provided to pt with explanation. Pt appears to be resting comfortably and will plan to transfer to [facility] today.
[2019-04-22] MEDS ORDERED: CLEOCIN HCL300 MG PO (09:13)
[2019-04-22] MEDS ORDERED: IPRATROPIUM BROM3 M1 IH (09:14)
[2019-04-22] MEDS ORDERED: PACERONE200 MG PO (09:15)
[2019-04-22] MEDS ORDERED: TRANSDERM-0.5 MG/21 TD (09:17)
[2019-04-22] MEDS ORDERED: ZOFRAN 4MG T4 MG/TAB PO (09:18)
[2019-04-22] MEDS ORDERED: FLEET ENEM1 BOT/133 RC (09:18)
[2019-04-22] MEDS ORDERED: DULCOLAX S10 MG/SUPP RC (09:18)
[2019-04-22] MEDS ORDERED: ARTIFICIAL TEAR15 M7 OP (09:19)
[2019-04-22] MEDS ORDERED: ROXANOL 20MG20 MG/ML SL (09:20)
[2019-04-22] MEDS ORDERED: ATIVAN 1MG T1 MG/TAB PO (09:20)
[2019-04-22] MEDS ORDERED: PREDNISONE20 MG PO (09:23)
--- NOTE | 2019-04-22 09:32 | NUR ---
The patient is to discharge today, 04/22 to the [facility]. DANELLE faxed discharge orders to [facility]. [facility] confirmed they can transport the pt at 1030. DANELLE informed the pt and pt's nurse and all were in agreeance. DANELLE attempted to contact [facility]- there was no answer, DANELLE left a message. DANELLE attempted to contact pt's mom and the phone number we have on file is not in service. There are no additional needs at this time.
--- NOTE | 2019-04-22 10:30 | NUR ---
PATIENT LEAVES WITH EMS TO HOSPICE HOUSE AT THIS TIME. PICC LINE REMOVED BY PICC TEAM. DISCHARGE PACKET SENT WITH EMS CREW
== END 2019-04-22 10:30 | disposition hospice, inpatient (51) | DRG 871 ==
LOC: COL.ER 11:10 → ICU 12:45
PROVIDERS: Emergency Medicine; Internal Medicine Critical Care Medicine; Internal Medicine Pulmonary Disease; Physician Assistant; ADMIT Student in an Organized Health Care Education/Training Program
PROC: 02H633Z Insertion of Infusion Device into Right Atrium, Percutaneous Approach (ICD-10-PCS; principal; 2019-04-18)
DX: A41.9 Sepsis, unspecified organism (principal); J96.02 Acute respiratory failure with hypercapnia; J69.0 Pneumonitis due to inhalation of food and vomit; J96.01 Acute respiratory failure with hypoxia; E87.2 Acidosis; E87.0 Hyperosmolality and hypernatremia; I48.92 Unspecified atrial flutter; G71.00 Muscular dystrophy, unspecified; I48.91 Unspecified atrial fibrillation; G47.419 Narcolepsy without cataplexy; G47.33 Obstructive sleep apnea (adult) (pediatric); K21.9 Gastro-esophageal reflux disease without esophagitis; R00.0 Tachycardia, unspecified; D72.819 Decreased white blood cell count, unspecified; K59.00 Constipation, unspecified; R74.0 Nonspecific elevation of levels of transaminase and lactic acid dehydrogenase [LDH]; E78.5 Hyperlipidemia, unspecified; Z88.8 Allergy status to other drugs, medicaments and biological substances
CPT/HCPCS: 99233-AI; 99239; C1751; J0282; J0610; J1650; J1815; J1940; J2405; J2543; J2920; J7030; J7050; J7060; J7120; Q9967

== ENCOUNTER 2020-06-23 01:02 | Inpatient (IN) | payer MEDICAID ==
[~2020-06-23] VITALS: Ht 167.6 cm; Wt 85.9 kg
[2020-06-23] VITALS (12 sets, daily range): BP systolic 92–127; BP diastolic 53–89; PULSE 86–111; TEMP 97.4–98.8
[~2020-06-23 01:02] MED LIST changes: +ARTIFICIAL TEAR15 M7 OP; +ATIVAN 1MG T1 MG/TAB PO; +CLEOCIN HCL300 MG PO; +DULCOLAX S10 MG/SUPP RC; +FLEET ENEM1 BOT/133 RC; +IPRATROPIUM BROM3 M1 IH; +PACERONE200 MG PO; +PREDNISONE20 MG PO; +ROXANOL 20MG20 MG/ML SL; +TRANSDERM-0.5 MG/21 TD
[2020-06-23] MEDS ORDERED: TYLENOL 500MG500 MG PO (01:42)
[2020-06-23] MEDS ORDERED: SENNA-S 50 MG-81 TAB PO ×2 (01:45→01:55)
[2020-06-23] MEDS ORDERED: ULTRAM 50MG TAB50 MG PO ×3 (01:46→04:04)
[2020-06-23] MEDS ORDERED: PEPCID 20MG TAB20 MG PO (01:48)
[2020-06-23] MEDS ORDERED: PRILOSEC 20MG20 MG PO (01:50)
[2020-06-23] MEDS ORDERED: TUMS500 MG PO ×2 (01:52→01:59)
[2020-06-23] MEDS ORDERED: NITROSTAT0.4 MG/TAB SL (01:54)
[2020-06-23] MEDS ORDERED: ZOFRAN 4MG T4 MG/TAB PO ×2 (02:01→02:02)
--- NOTE | 2020-06-23 04:13 | NUR ---
Patient arrives via EMS stretcher. Stands with 1 assist from staff and able to take a couple steps to the chair. Patient up in the chair for a couple hours. Currently resting in bed, awake. Patient alert and oriented x3. 20G to right hand and 22G to left AC flush with no difficulties. IVF administered per orders to right hand. Patient NPO. Complains of pain to RUQ abdominal/right chest pain. States chronic nausea. Patient on oxygen at 2L via nasal cannula. Will continue to monitor patient.
[2020-06-23 04:45] LABS: BASO % 0.4 % (0.0-2.0); EOS % 0.3 % (0-4.0); GRAN # 5.3 (1.4-6.5); GRAN % 66.7 % (42.2-75.2); LYMPH # 1.9 (1.2-3.4); LYMPH % 23.4 % (20.0-51.0); MEAN CELL VOLUME 94 fl (80.0-100.0); MEAN CORPUSCULAR HGB CONC 32 g/dl (33.0-37.0); MONO # 0.7 (0.1-0.6); MONO % 8.9 % (1.7-9.3); PLATELET COUNT 242 K/mm3 (130-400); RED BLOOD COUNT 6.02 M/mm3 (4.20-5.60)
[2020-06-23 04:47] LABS: HEMATOCRIT 56.6 % (42.0-52.0); HEMOGLOBIN 18.1 g/dl (13.5-18.0); MEAN CORPUSCULAR HEMOGLOBIN 30 pg (27.0-31.0)
--- NOTE | 2020-06-23 08:26 | NUR ---
0715 200ML YELLOW EMESIS IN LOPES BASIN.
[2020-06-23 08:32] LABS: ALBUMIN 4.7 gm/dL (3.5-5.0); BILIRUBIN,TOTAL 0.6 mg/dL (0.0-1.0); CALCIUM 10.3 mg/dL (8.4-10.2); CREATININE, serum 0.62 (0.66-1.25); POTASSIUM 4.3 mmol/L (3.4-5.0)
--- NOTE | 2020-06-23 08:52 | NUR ---
0845 PATIENT O2 SAT AT 88% ON ROOM AIR. 1L APPLIED VIA NC, 93% AT THIS TIME.
--- NOTE | 2020-06-23 16:25 | NUR ---
Manager Personal attended clinical rounds then met with patient to discuss discharge planning. Patient lives at [facility] in [place] and reports he has been there over a year. Patient sees Dr. Kent for primary care and advised that staff at administer most of his medications to him. Patient states he can get dressed independently however has assistance from staff with showers. Patient uses a cane for ambulation. Patient's DPOA-HC is his cousin, Tahmina (ph#[phone]) and patient also reports his mother Christy (ph#[phone]) lives in [place]. Patient states he plans to return to [facility] but wonders if he will need a skilled stay at somewhere like [facility], which is a SNF located in [place]. DANELLE contacted patient's DPOA, Tahmina who reports patient used to live at [facility] but moved to to be closer to family. Tahmina states plan is for patient to return to upon discharge. DANELLE contacted Mirta at who advised they are able to take patient back upon discharge. DANELLE faxed updates and will continue to follow.
--- NOTE | 2020-06-23 21:00 | NUR ---
Resting in bed. Assessment complete. Lungs clear. Heart sounds normal. Bowels active x4. Pulses present throughout. No edema noted. INT left AC without complications. IV right hand infusing without complications. Reporting 9/10 chest pain. Patient systolic 111. Will speak with Dr. Qiu prior to given nitroglycerin. Patient denies other needs at this time.
--- NOTE | 2020-06-23 21:05 | NUR ---
Reported 9/10 chest pain. BP [address] Qiu. Go head and give nitro, will add more orders. Nitro provided to patient.
--- NOTE | 2020-06-23 22:18 | NUR ---
Patient with continued chest pain and now ABD pain. Given PRN morphine at this time. Will monitor.
--- NOTE | 2020-06-23 22:50 | NUR ---
Reports morphine has decreased intensity of chest and ABD pain at this time. Will continue to monitor.
--- NOTE | 2020-06-23 23:49 | NUR ---
Patient very somnolent. Awakens for sternal rub. VS stable at this time. House supervisior aware. Will closely monitor.
[2020-06-24] VITALS (8 sets, daily range): BP systolic 99–118; BP diastolic 55–82; PULSE 69–93; TEMP 97.7–98.8
--- NOTE | 2020-06-24 02:06 | NUR ---
Patient reports 8/10 chest pain. Patient blood pressures continue to be in the 90s systolic. Morphine and nitro contrindicated at this time. Patient oxygen saturations on 80s. Increased to 2 liters oxymask due to patient placing nasal cannula in mouth. Spoke with Dr. Qiu. Updated Dr. Qiu regarding patient complaints. Informed Dr. Qiu patient became unresponsive with stable vital signs after last dose of morphine given. Dr. Qiu okay with holding off on morphine. No new orders medically at this time, just continue to monitor.
--- NOTE | 2020-06-24 06:27 | NUR ---
Patient had 8/10 chest pain throughout night. Was given nitro which decreased BP. Once BP increased patient given morphine. Morphine caused patient to become unresponsive with stable vital signs. Patient eventually was arousable with painful stimuli. Patient closely monitored and house supervisior aware. Dr. Qiu was updated on patient situation and agreed to not give morphine. Resting in bed this AM, is alert and orientated. Call light in reach.
--- NOTE | 2020-06-24 07:20 | NUR ---
Report given to WILLOW Bhatti
[2020-06-24 07:37] LABS: CALCIUM 9.4 mg/dL (8.4-10.2); CREATININE, serum 0.59 (0.66-1.25); POTASSIUM 4.3 mmol/L (3.4-5.0)
[2020-06-24 07:54] LABS: BASO % 0.4 % (0.0-2.0); EOS # 0.1 (0.0-0.7); EOS % 1.1 % (0-4.0); GRAN # 3.2 (1.4-6.5); GRAN % 57.4 % (42.2-75.2); HEMOGLOBIN 16.2 g/dl (13.5-18.0); LYMPH # 1.8 (1.2-3.4); LYMPH % 31.7 % (20.0-51.0); MEAN CELL VOLUME 97 fl (80.0-100.0); MEAN CORPUSCULAR HEMOGLOBIN 30 pg (27.0-31.0); MEAN CORPUSCULAR HGB CONC 31 g/dl (33.0-37.0); MEAN PLATELET VOLUME 11.3 fl (7.4-10.4); MONO # 0.5 (0.1-0.6); MONO % 8.9 % (1.7-9.3); PLATELET COUNT 214 K/mm3 (130-400); RED BLOOD COUNT 5.37 M/mm3 (4.20-5.60)
--- NOTE | 2020-06-24 08:21 | NUR ---
Sitting up in bed with eyes open. Patient very talkative. Said he had diarrhea this morning which is not normal for him. Sample was collected and sent to lab. Having some nausea and requests Zofran, will administer as prescribed. CHest pain rating 8/10, describes as sharp razor pain, located more on left side of chest, deep breaths worsen pain. Buttocks pain 10/10, says he always has pain in his bottom, will reposition so that the pain alleviates. Patient denies additional needs at this time.
[2020-06-24 08:32] LABS: HEMATOCRIT 52.2 % (42.0-52.0)
--- NOTE | 2020-06-24 09:50 | NUR ---
Patient complains of feeling lightheaded and dizzy. Sitting up in bed at this time. Vital signs were obtained. SpO2 initially was 78% with patient on room air. Oxymask was reapplied at 2L and SpO2 increases to low 90's. Patient instructed to leave oxymask on at this time. NATIVIDAD Lazaro updated.
--- NOTE | 2020-06-24 10:52 | NUR ---
Sitting up in chair with oxymask on at 2L. Patient able to hold conversation. Hospitalist in room to see patient.
--- NOTE | 2020-06-24 12:53 | NUR ---
Initial visit; Patient thanked Cloud Systems Administrator for visiting him and offering God's blessings. Patient was receptive to being kept in Cloud Systems Administrator's prayers. Visit was interrupted, Cloud Systems Administrator let Esa know she will look in on him again, though if he would like another visit, to just tell a nurse and they will contact Cloud Systems Administrator.
--- NOTE | 2020-06-24 14:05 | NUR ---
Patient to radiology via wheel chair for swallow study.
--- NOTE | 2020-06-24 15:01 | NUR ---
Patient returns to room from radiology. Per ST, patient had vomiting and continued diarrhea in radiology. Will administer Zofran at this time.
--- NOTE | 2020-06-24 15:31 | NUR ---
Reviewed consent for EGD with patient and his DPOA Landy, . Landy says that she will not consent to the procedure unless she talks with the provider or anesthesia regarding exactly what medications will be used for sedation due to adverse reactions in the past that the patient has had with anesthesia. Dexter, RN, contacts Alejandra in surgery and she says that that will need to be discussed with the provider performing the procedure as anesthesia will not be involved with the case. Spoke with Dr. Christian and provided him with number to Landy and he will call to talk with her further.
--- NOTE | 2020-06-24 15:37 | NUR ---
Machine Ceramic Coater attended clinical rounds with the team. GI consult ordered. DANELLE followed up with patient and advised that he does not currently qualify for a skilled stay and plan would be to return to [facility]. Patient verbalized understanding. DANELLE contacted patient's DPOATahmina and provided update. DANELLE faxed updates to Mirta at [facility] and will continue to follow.
--- NOTE | 2020-06-24 16:41 | NUR ---
Lying in bed on right side with eyes closed. Respirations even and unlabored. Oxymask on at 2L. No signs or symptoms of discomfort noted at this time.
--- NOTE | 2020-06-24 17:55 | NUR ---
Continues to rest in bed with eyes closed on right side. Respirations even and unlabored, oxymask on at 2L. No signs or symptoms of discomfort noted at this time.
--- NOTE | 2020-06-24 20:30 | NUR ---
Pt. laying in bed respirations are equal and unlabored. Pt. was difficult to arrouse but then did wake. Pt. is A&OX3, assessment complete. Iv to lt. ac patent, IV fluids infusing per orders. Pt. denies further needs, call light within reach.
[2020-06-25 04:28] VITALS: BP 126/80; PULSE 103; TEMP 98.1
[2020-06-25 04:39] VITALS: BP 137/79; PULSE 117; TEMP 99.5
[2020-06-25 07:55] LABS: BASO % 0.4 % (0.0-2.0); EOS # 0.1 (0.0-0.7); EOS % 1.2 % (0-4.0); GRAN # 4.2 (1.4-6.5); GRAN % 63.3 % (42.2-75.2); HEMATOCRIT 43.6 % (42.0-52.0); HEMOGLOBIN 13.6 g/dl (13.5-18.0); LYMPH # 1.8 (1.2-3.4); LYMPH % 26.8 % (20.0-51.0); MEAN CELL VOLUME 95 fl (80.0-100.0); MEAN CORPUSCULAR HEMOGLOBIN 30 pg (27.0-31.0); MEAN CORPUSCULAR HGB CONC 31 g/dl (33.0-37.0); MEAN PLATELET VOLUME 10.3 fl (7.4-10.4); MONO # 0.5 (0.1-0.6); MONO % 7.6 % (1.7-9.3); PLATELET COUNT 209 K/mm3 (130-400); RED BLOOD COUNT 4.57 M/mm3 (4.20-5.60); REDCELL DISTRIBUTION WIDTH-CV 13.5 % (11.5-14.5)
[2020-06-25 08:04] LABS: CALCIUM 8.9 mg/dL (8.4-10.2); CREATININE, serum 0.59 (0.66-1.25); POTASSIUM 4.1 mmol/L (3.4-5.0)
[2020-06-25 08:33] VITALS: BP 99/63; PULSE 83; TEMP 97.4
--- NOTE | 2020-06-25 09:29 | NUR ---
Follow-up visit; 'Esa' was talkative this morning and explained what had been happening to his health and preparing for a 'Procedure' this morning. Fountain Attendant listened and offered prayer for a successful 'Procedure' and healing. Fountain Attendant will follow up.
[2020-06-25 11:43] VITALS: BP 94/59; PULSE 83; TEMP 97.4
--- NOTE | 2020-06-25 15:43 | NUR ---
Marketing Area Manager attended clinical rounds with the team. Patient had EGD this morning. Patient inquired about having additional physical therapy at [facility]. DANELLE contacted Mirta at [facility] who advised patient is a part of their restoritive therapy program. DANELLE faxed clinical updates to Mirta at [facility] and advised plan is for patient to discharge tomorrow. Mirta advised they are able to accept tomorrow. DANELLE will continue to follow.
[2020-06-25 16:05] VITALS: BP 104/68; PULSE 78; TEMP 97.4
--- NOTE | 2020-06-25 18:34 | NUR ---
Patient resting in bed at this time. Patient is alert and oriented, answers questions appropriately, but due to dysphasia, is somewhat hard to understand. Patient transfers with 1-2 assist to bedside commode, is continent of bowel and bladder. Loose stools were reported, administered PRN lopirimide per order. Patient denies further needs at this time, call light within reach.
[2020-06-25 20:00] VITALS: BP 116/58; PULSE 80; TEMP 97.2
[2020-06-26] VITALS: BP 104/71; PULSE 62; TEMP 97.6
[2020-06-26 04:00] VITALS: BP 119/79; PULSE 72; TEMP 97.7
--- NOTE | 2020-06-26 05:50 | NUR ---
PT IN BED. tRAMADOL ADMIN. EARLY IN SHIFT FOR BACK PAIN. ZOFRAN ADMIN. FOR NAUSEA. NO c/o CHEST DISCOMFORT. NO DYSPNEA REPORTED.
[2020-06-26 08:00] VITALS: BP 134/83; PULSE 79; TEMP 97.5
--- NOTE | 2020-06-26 10:06 | NUR ---
Patient alert and oriented, answers questions appropriately. See assessment. Seizure precautions in place. Abdomen soft, non tender, non distended. +Flatus. C/o nausea, but able to eat 100% of breakfast. No c/o chest pain or discomfort. No other c/o at this time.
--- NOTE | 2020-06-26 11:11 | NUR ---
Dr Raza here to see patient.
[2020-06-26 11:36] VITALS: BP 105/69; PULSE 87; TEMP 98.4
[2020-06-26 11:56] VITALS: BP 105/69; PULSE 87; TEMP 98.4
--- NOTE | 2020-06-26 12:01 | NUR ---
DANELLE update. Patient accepted to LTC at [facility] in [place]. Patient will transfer with PU time at 12:30 p.m. DANELLE updated and faxed [facility] DC summary. SW notified PRESLEY Martel. PRESLEY denies any concerns. Nothing follows.
--- NOTE | 2020-06-26 13:14 | NUR ---
Patient transferred to [facility] via wheelchair with transportation staff at 1315. Report called to
== END 2020-06-26 13:15 | DRG 313 ==
LOC: MEDICAL 01:02 → JCC 01:23
PROVIDERS: Nurse Practitioner Family; Physician Assistant; ADMIT Hospitalist
DX: R07.89 Other chest pain (principal); K56.7 Ileus, unspecified; G71.11 Myotonic muscular dystrophy; K31.84 Gastroparesis; K58.9 Irritable bowel syndrome, unspecified; E66.9 Obesity, unspecified; G47.33 Obstructive sleep apnea (adult) (pediatric); E78.5 Hyperlipidemia, unspecified; I48.91 Unspecified atrial fibrillation; K21.9 Gastro-esophageal reflux disease without esophagitis; K76.0 Fatty (change of) liver, not elsewhere classified; R74.0 Nonspecific elevation of levels of transaminase and lactic acid dehydrogenase [LDH]; G47.419 Narcolepsy without cataplexy; Z90.49 Acquired absence of other specified parts of digestive tract
CPT/HCPCS: OP; 99223-AI; 99232-AI; 99239; J1650; J2270; J2405; J2704; J7120

== ENCOUNTER → 2021-01-10 | Outpatient (CLI) | payer MEDICAID ==
[~2021-01-10] VITALS: Ht 167.6 cm; Wt 85.6 kg
[~2021-01-10] MED LIST changes: +NITROSTAT0.4 MG/TAB SL; +PEPCID 20MG TAB20 MG PO; +PRILOSEC 20MG20 MG PO; +SENNA-S 50 MG-81 TAB PO; +TUMS500 MG PO; +TYLENOL 500MG500 MG PO; +ULTRAM 50MG TAB50 MG PO
[2021-01-10 11:53] VITALS: BP 149/98; PULSE 105
--- NOTE | 2021-01-10 14:07 | NUR ---
pt will reschedule
== END ==
LOC: COL.CARD 10:45
DX: G71.11 Myotonic muscular dystrophy (principal)

== ENCOUNTER → 2021-01-21 | Outpatient (CLI) | payer MEDICAID ==
[~2021-01-21] VITALS: Ht 167.6 cm; Wt 90.5 kg
[2021-01-21 11:20] VITALS: BP 151/88; PULSE 102
[2021-01-21 11:22] VITALS: BP 128/69; PULSE 124
[2021-01-21 13:05] VITALS: BP 151/88; PULSE 102
--- NOTE | 2021-01-21 17:00 | NUR ---
BEFORE TEST PATIENT STATED HE STARTED HAVING CHEST PAIN. NOTIFIED SUPERVISING LAURENCE YOUNG AND SHE CAME IN TO ASSESS PATIENT. THE CHEST PAIN OF 8 OR 9 IS THE PATIENTS NORMAL. AFTER ASSESSING WE DETERMINED THAT IT WAS OKAY TO PROCEED WITH TEST AND PATIENT DID NOT HAVE ABNORMAL VITAL SIGNS. Post test patient did vomit RN attended to patient.
== END ==
LOC: COL.CARD 10:37
DX: R07.9 Chest pain, unspecified (principal)
CPT/HCPCS: A9500; J2785